=== PATIENT | male | born 1960 | race African-American/Black ===

== ENCOUNTER 2021-11-30 16:48 | Emergency (ER) | payer OTHER ==
[~2021-11-30] VITALS: Ht 177.8 cm; Wt 64.0 kg
[2021-11-30 17:12] VITALS: BP 149/69
== END 2021-11-30 18:58 | disposition left against medical advice (07) ==
LOC: ER 16:48
DX: Z53.21 Procedure and treatment not carried out due to patient leaving prior to being seen by health care provider (principal)